=== PATIENT | female | born 2000 | race Hispanic/Latino ===

== ENCOUNTER 2021-02-20 21:05 | Emergency (ER) | payer OTHER, SELFPAY ==
[2021-02-21 19:07] LABS: SARS-CoV-2 PCR by NAA DETECTED (NotDetected)
== END 2021-02-20 21:57 | disposition home or self-care (01) ==
LOC: BURERS 21:05
DX: U07.1 COVID-19 (principal)
CPT/HCPCS: 99283; U0003; U0005